=== PATIENT | male | born 1995 | race African-American/Black ===

== ENCOUNTER 2017-03-14 14:34 | Emergency (ER) | payer SELFPAY ==
[~2017-03-14] VITALS: Ht 190.5 cm; Wt 81.8 kg
[~2017-03-14 14:34] MED LIST: DIVA500T52 PO; RISP1 PO
[2017-03-14] MEDS ORDERED: ACETAMINOPHEN 500 MG TABLET PO ONE (17:45)
[2017-03-14 19:52] VITALS: BP 121/83
[2017-03-16] MEDS ORDERED: QUET200T PO (10:43)
== END 2017-03-14 19:53 | disposition home or self-care (01) ==
LOC: EMS 14:36
DX: R07.89 Other chest pain (principal); F29 Unspecified psychosis not due to a substance or known physiological condition; F12.90 Cannabis use, unspecified, uncomplicated; F32.9 Major depressive disorder, single episode, unspecified; J45.909 Unspecified asthma, uncomplicated
CPT/HCPCS: 71100; 99285

== ENCOUNTER 2017-06-06 15:04 | Inpatient (IN) | payer MEDICAID ==
[~2017-06-06] VITALS: Ht 188 cm; Wt 76.2 kg
[~2017-06-06 15:04] MED LIST changes: +QUET200T PO; -RISP1 PO
[2017-06-06] MEDS ORDERED: ZOLPIDEM TARTRATE 10 MG TABLET PO PRN (16:30)
[2017-06-06] MEDS ORDERED: PNEUMOCOCCAL VACCINE POLYVALENT 0.5 ML VIAL [PPSV23] IM ONE (16:45)
[2017-06-06] MEDS ORDERED: INFLUENZA VIRUS VACCINE QVS 2017-18 (3YR+)/PF 60 MCG/0.5 ML SYRINGE IM ONE (16:45)
[2017-06-06] MEDS ORDERED: HALOPERIDOL LACTATE 5 MG/ML VIAL ONE (19:02)
[2017-06-06] MEDS ORDERED: LORazepam 2 MG/ML VIAL ONE (19:02)
[2017-06-06] MEDS ORDERED: DiphenhydrAMINE HCL 50 MG/ML VIAL ONE (19:02)
[2017-06-06] MEDS ORDERED: DiphenhydrAMINE HCL 50 MG/ML VIAL IM ONE (19:15)
[2017-06-06] MEDS ORDERED: HALOPERIDOL LACTATE 5 MG/ML VIAL IM ONE (19:15)
[2017-06-06] MEDS ORDERED: LORazepam 2 MG/ML VIAL IM ONE (19:15)
[2017-06-06] MEDS: QUEtiapine FUMARATE 200 MG TABLET PO SCH (19:15)
[2017-06-07] MEDS: QUEtiapine FUMARATE 200 MG TABLET PO SCH ×2 (08:57→17:00)
[2017-06-07] MEDS: LORazepam 2 MG TABLET PO PRN ×2 (08:57→17:11)
[2017-06-08] MEDS: ALBUTEROL SULFATE HFA 90 MCG/PUFF 8 GM INHALER IH PRN ×4 (00:05→20:35)
[2017-06-08] MEDS: QUEtiapine FUMARATE 200 MG TABLET PO SCH ×2 (08:46→17:00)
[2017-06-09] MEDS: LORazepam 2 MG TABLET PO PRN ×2 (05:38→16:54)
[2017-06-09] MEDS: QUEtiapine FUMARATE 200 MG TABLET PO SCH ×2 (09:00→16:54)
[2017-06-09] MEDS ORDERED: DiphenhydrAMINE HCL 50 MG/ML VIAL ONE (09:49)
[2017-06-09] MEDS ORDERED: LORazepam 2 MG/ML VIAL ONE (09:49)
[2017-06-09] MEDS ORDERED: HALOPERIDOL LACTATE 5 MG/ML VIAL ONE (09:49)
[2017-06-09] MEDS ORDERED: DiphenhydrAMINE HCL 50 MG/ML VIAL IM ONE (10:00)
[2017-06-09] MEDS ORDERED: LORazepam 2 MG/ML VIAL IM ONE (10:00)
[2017-06-09] MEDS ORDERED: HALOPERIDOL LACTATE 5 MG/ML VIAL IM ONE (10:00)
[2017-06-10] MEDS: QUEtiapine FUMARATE 200 MG TABLET PO SCH ×2 (09:00→16:55)
[2017-06-10] MEDS: ALBUTEROL SULFATE HFA 90 MCG/PUFF 8 GM INHALER IH PRN ×2 (13:30→22:56)
[2017-06-11] MEDS: ALBUTEROL SULFATE HFA 90 MCG/PUFF 8 GM INHALER IH PRN ×2 (06:11→10:44)
[2017-06-11] MEDS ORDERED: LORazepam 1 MG TABLET PO PRN (08:30)
[2017-06-11] MEDS: QUEtiapine FUMARATE 200 MG TABLET PO SCH ×2 (09:00→17:00)
[2017-06-12] MEDS: ALBUTEROL SULFATE HFA 90 MCG/PUFF 8 GM INHALER IH PRN ×2 (03:43→08:08)
[2017-06-12] MEDS: QUEtiapine FUMARATE 200 MG TABLET PO SCH ×2 (08:07→08:11)
[2017-06-12] MEDS ORDERED: HALOPERIDOL LACTATE 5 MG/ML VIAL IM ONE (15:30)
[2017-06-12] MEDS ORDERED: LORazepam 2 MG/ML VIAL IM ONE (15:30)
[2017-06-12] MEDS ORDERED: DiphenhydrAMINE HCL 50 MG/ML VIAL IM ONE (15:30)
[2017-06-13] MEDS ORDERED: DiphenhydrAMINE HCL 50 MG/ML VIAL ONE (12:15)
[2017-06-13] MEDS ORDERED: LORazepam 2 MG/ML VIAL ONE (12:15)
[2017-06-13] MEDS ORDERED: HALOPERIDOL LACTATE 5 MG/ML VIAL ONE (12:16)
[2017-06-13] MEDS ORDERED: LORazepam 2 MG/ML VIAL IM ONE (12:30)
[2017-06-13] MEDS ORDERED: HALOPERIDOL LACTATE 5 MG/ML VIAL IM ONE (12:30)
[2017-06-13] MEDS ORDERED: DiphenhydrAMINE HCL 50 MG/ML VIAL IM ONE (12:30)
[2017-06-13] MEDS: ChlorproMAZINE HCL 50 MG TABLET PO SCH (17:00)
[2017-06-13] MEDS: DOCUSATE SODIUM 100 MG CAPSULE PO SCH (17:26)
[2017-06-14] MEDS: ALBUTEROL SULFATE HFA 90 MCG/PUFF 8 GM INHALER IH PRN (07:03)
[2017-06-14] MEDS: DOCUSATE SODIUM 100 MG CAPSULE PO SCH (08:08)
[2017-06-14] MEDS: ChlorproMAZINE HCL 50 MG TABLET PO SCH (08:19)
[2017-06-14] MEDS ORDERED: CHLO50 PO (11:57)
[2017-06-14] MEDS ORDERED: DSS100 PO (11:58)
== END 2017-06-14 12:42 | disposition home or self-care (01) | DRG 750 ==
LOC: B3A 16:29
PROVIDERS: ADMIT Psychiatry & Neurology Child & Adolescent Psychiatry; ATTEND Psychiatry & Neurology Child & Adolescent Psychiatry
DX: F25.1 Schizoaffective disorder, depressive type (principal); R45.851 Suicidal ideations; Z91.14 Patient's other noncompliance with medication regimen; D72.829 Elevated white blood cell count, unspecified; F12.90 Cannabis use, unspecified, uncomplicated; J45.909 Unspecified asthma, uncomplicated; Z53.20 Procedure and treatment not carried out because of patient's decision for unspecified reasons; Z79.899 Other long term (current) drug therapy; Z91.19 Patient's noncompliance with other medical treatment and regimen; Z28.21 Immunization not carried out because of patient refusal
CPT/HCPCS: 87081; J1200; J1630; J2060; J3535

== ENCOUNTER 2017-07-13 00:54 | Emergency (ER) | payer MEDICAID, OTHER ==
[~2017-07-13] VITALS: Ht 185.4 cm; Wt 77.0 kg
[~2017-07-13 00:54] MED LIST changes: +CHLO50 PO; -DIVA500T52 PO; +DSS100 PO; -QUET200T PO
[2017-07-13 04:01] VITALS: BP 125/70
[2017-07-13] MEDS ORDERED: 0.9% SODIUM CHLORIDE 5 ML NEB SOLUTION NEB ONE (04:41)
[2017-07-13] MEDS ORDERED: ALBUTEROL SULFATE 2.5 MG/0.5 ML NEB SOLUTION NEB ONE (04:45)
[2017-07-13] MEDS ORDERED: PredniSONE 20 MG TABLET PO ONE (04:45)
[2017-07-13] MEDS ORDERED: DEXAMETHASONE 4 MG TABLET PO ONE (04:45)
[2017-07-13] MEDS ORDERED: ALBUTEROL SULFATE HFA 90 MCG/PUFF 8 GM INHALER IH ONE ×2 (04:45)
== END 2017-07-13 05:32 | disposition home or self-care (01) ==
LOC: EMS 00:55
DX: J45.901 Unspecified asthma with (acute) exacerbation (principal)
CPT/HCPCS: 94640; 96372; 99283; J7613; J8540; J3535

== ENCOUNTER 2017-07-21 09:48 | Emergency (ER) | payer OTHER | END 2017-07-21 10:18 | disposition left against medical advice (07) | LOC: EMS 09:51 | DX: J45.909 Unspecified asthma, uncomplicated (principal); Z53.21 Procedure and treatment not carried out due to patient leaving prior to being seen by health care provider ==

== ENCOUNTER 2017-08-21 23:32 | Emergency (ER) | payer OTHER ==
[~2017-08-21] VITALS: Ht 188 cm; Wt 75.0 kg
[2017-08-22 00:34] VITALS: BP 0/0
[2017-08-22] MEDS ORDERED: ALBU1.252 IH (10:21)
== END 2017-08-22 00:37 | disposition home or self-care (01) ==
LOC: EMS 23:33
DX: F25.9 Schizoaffective disorder, unspecified (principal); R07.81 Pleurodynia; G89.29 Other chronic pain
CPT/HCPCS: 99284

== ENCOUNTER 2017-08-22 10:16 | Emergency (ER) | payer OTHER ==
[~2017-08-22] VITALS: Ht 182.9 cm; Wt 100.0 kg
[2017-08-22 10:18] VITALS: BP 120/80
[2017-08-22] MEDS ORDERED: ALBU1.252 IH (10:21)
== END 2017-08-22 11:46 | disposition left against medical advice (07) ==
LOC: EMS 10:18
DX: Z76.0 Encounter for issue of repeat prescription (principal); J45.909 Unspecified asthma, uncomplicated; Z53.21 Procedure and treatment not carried out due to patient leaving prior to being seen by health care provider

== ENCOUNTER 2020-06-10 00:49 | Inpatient (IN) | payer MEDICAID, OTHER ==
[~2020-06-10] VITALS: Ht 188 cm; Wt 72.3 kg
[~2020-06-10 00:49] MED LIST changes: +ALBU1.252 IH; -CHLO50 PO; +CHLO50TA41 PO
[2020-06-10] MEDS ORDERED: ALBUTEROL SULFATE 5 MG/ML 20 ML NEB SOLN [BULK] NEB ONE (04:45)
[2020-06-10 08:12] LABS: AMPHET/METH SCREEN,URINE NEGATIVE (NEGATIVE); BARBITURATE SCREEN, URINE NEGATIVE (NEGATIVE); BENZODIAZEPINES SCREEN,URINE NEGATIVE (NEGATIVE); CANNABINOID SCREEN,URINE POSITIVE (NEGATIVE); COCAINE SCREEN,URINE NEGATIVE (NEGATIVE); METHADONE SCREEN, URINE NEGATIVE (NEGATIVE); OPIATE SCREEN,URINE NEGATIVE (NEGATIVE)
[2020-06-10 08:14] LABS: PHENCYCLIDINE SCREEN,URINE NEGATIVE (NEGATIVE)
[2020-06-10] MEDS ORDERED: MAGNESIUM HYDROXIDE SUSPENSION 30 ML UDCUP PO PRN (08:45)
[2020-06-10] MEDS ORDERED: LOPERAMIDE HCL 2 MG CAPSULE PO PRN (08:45)
[2020-06-10] MEDS ORDERED: ZOLPIDEM TARTRATE 10 MG TABLET PO PRN (08:45)
[2020-06-10] MEDS ORDERED: OLANZapine 5 MG RAPDIS TABLET PO PRN (08:45)
[2020-06-10] MEDS ORDERED: TUBERCULIN, PURIFIED PROTEIN DERIVATIVE 5 TU/0.1 ML SYRINGE ID ONE (08:45)
[2020-06-10] MEDS ORDERED: MAG HYDROX/AL HYDROX/SIMETH ES 30 ML SUSPENSION UDCUP PO PRN (08:45)
[2020-06-10] MEDS ORDERED: HydrOXYzine PAMOATE 50 MG CAPSULE PO PRN (08:45)
[2020-06-10] MEDS ORDERED: ACETAMINOPHEN 325 MG TABLET PO PRN (08:45)
[2020-06-10] MEDS ORDERED: PROMETHAZINE HCL 25 MG TABLET PO PRN (08:45)
[2020-06-10] MEDS ORDERED: GuaiFENesin/D-METHORPHAN [SUGAR-FREE] 200-20MG/10 ML SYRUP UDCUP PO PRN (08:45)
[2020-06-10 09:02] LABS: COVID AG,FIA SOURCE NASOPHARYNGEAL
[2020-06-10] MEDS: THIAMINE 100 MG TABLET PO SCH ×2 (09:23→17:00)
[2020-06-10] MEDS: OMEGA-3/DHA/EPA/FISH OIL 1,000 MG CAPSULE PO SCH (09:24)
[2020-06-10] MEDS: NALTREXONE HCL 50 MG TABLET PO SCH (09:24)
[2020-06-10] MEDS: MULTIVITAMINS WITH MINERALS, THERAPEUTIC TABLET PO SCH (09:24)
[2020-06-10] MEDS: LORazepam 2 MG TABLET PO PRN ×2 (09:25→16:19)
[2020-06-10] MEDS: FOLIC ACID 1 MG TABLET PO SCH (09:25)
[2020-06-10 16:28] VITALS: BP 121/78
[2020-06-10 16:31] VITALS: BP 116/78
[2020-06-10] MEDS ORDERED: INFLUENZA VIRUS VACCINE QVS 2020-21 (6MO+)/PF 60 MCG/0.5 ML SYRINGE IM ONE (17:30)
[2020-06-10] MEDS: OLANZapine 5 MG RAPDIS TABLET PO SCH (21:00)
[2020-06-11] MEDS: ALBUTEROL SULFATE HFA 90 MCG/PUFF 8 GM INHALER IH PRN ×4 (00:33→20:01)
[2020-06-11] MEDS: MULTIVITAMINS WITH MINERALS, THERAPEUTIC TABLET PO SCH (09:29)
[2020-06-11] MEDS: FOLIC ACID 1 MG TABLET PO SCH (09:29)
[2020-06-11] MEDS: THIAMINE 100 MG TABLET PO SCH ×2 (09:29→17:07)
[2020-06-11] MEDS: OMEGA-3/DHA/EPA/FISH OIL 1,000 MG CAPSULE PO SCH (09:29)
[2020-06-11] MEDS: NALTREXONE HCL 50 MG TABLET PO SCH (09:29)
[2020-06-11] MEDS: LORazepam 2 MG TABLET PO PRN (15:35)
[2020-06-11 16:08] VITALS: BP 130/68
[2020-06-11] MEDS: OLANZapine 5 MG RAPDIS TABLET PO SCH (20:01)
[2020-06-12] MEDS: ALBUTEROL SULFATE HFA 90 MCG/PUFF 8 GM INHALER IH PRN ×2 (02:54→06:58)
[2020-06-12 08:37] VITALS: BP 133/85
[2020-06-12] MEDS: NALTREXONE HCL 50 MG TABLET PO SCH (10:20)
[2020-06-12] MEDS: THIAMINE 100 MG TABLET PO SCH ×2 (10:21→17:22)
[2020-06-12] MEDS: MULTIVITAMINS WITH MINERALS, THERAPEUTIC TABLET PO SCH (10:21)
[2020-06-12] MEDS: OMEGA-3/DHA/EPA/FISH OIL 1,000 MG CAPSULE PO SCH (10:21)
[2020-06-12] MEDS: FOLIC ACID 1 MG TABLET PO SCH (10:21)
[2020-06-12] MEDS ORDERED: PALIPERIDONE PALMITATE 234 MG/1.5 ML SYRINGE IM ONE ×2 (14:00→16:00)
[2020-06-12] MEDS ORDERED: OLAN10TA22 PO (14:15)
[2020-06-12] MEDS ORDERED: OMEG-135 PO (14:15)
[2020-06-12] MEDS ORDERED: NALT50TA PO (14:15)
[2020-06-12 16:32] VITALS: BP 130/78
[2020-06-12] MEDS ORDERED: OLANZapine 10 MG RAPDIS TABLET PO SCH (21:00)
[2020-06-13 00:43] VITALS: BP 125/72
[2020-06-13] MEDS ORDERED: ALBU8HFA IH (08:19)
[2020-06-13] MEDS: ALBUTEROL SULFATE HFA 90 MCG/PUFF 8 GM INHALER IH PRN (08:47)
[2020-06-13] MEDS: THIAMINE 100 MG TABLET PO SCH (08:50)
[2020-06-13] MEDS: MULTIVITAMINS WITH MINERALS, THERAPEUTIC TABLET PO SCH (08:50)
[2020-06-13] MEDS: FOLIC ACID 1 MG TABLET PO SCH (08:50)
[2020-06-13] MEDS: OMEGA-3/DHA/EPA/FISH OIL 1,000 MG CAPSULE PO SCH (08:50)
[2020-06-13] MEDS: NALTREXONE HCL 50 MG TABLET PO SCH (08:50)
[2020-07-10] MEDS ORDERED: PALIPERIDONE PALMITATE 234 MG/1.5 ML SYRINGE IM SCH (09:00)
== END 2020-06-13 10:29 | disposition home or self-care (01) | DRG 750 ==
LOC: EMS 00:54 → B3A 13:21
PROVIDERS: ADMIT Psychiatry & Neurology Psychiatry; ATTEND Psychiatry & Neurology Psychiatry
DX: F25.9 Schizoaffective disorder, unspecified (principal); R45.851 Suicidal ideations; Z91.19 Patient's noncompliance with other medical treatment and regimen; F41.8 Other specified anxiety disorders; J45.909 Unspecified asthma, uncomplicated; Z87.891 Personal history of nicotine dependence; K21.9 Gastro-esophageal reflux disease without esophagitis; F12.90 Cannabis use, unspecified, uncomplicated; Z59.0 Homelessness; F19.10 Other psychoactive substance abuse, uncomplicated; Z20.828 Contact with and (suspected) exposure to other viral communicable diseases; Z28.21 Immunization not carried out because of patient refusal
CPT/HCPCS: 87426; 90686; J3535

== ENCOUNTER 2020-06-18 22:53 | Inpatient (IN) | payer MEDICAID, OTHER ==
[~2020-06-18] VITALS: Ht 188 cm; Wt 74.6 kg
[~2020-06-18 22:53] MED LIST changes: -ALBU1.252 IH; +ALBU8HFA IH; -CHLO50TA41 PO; -DSS100 PO; +NALT50TA PO; +OLAN10TA22 PO; +OMEG-135 PO
[2020-06-18] MEDS ORDERED: ALBU8HFA IH (23:07)
[2020-06-18] MEDS ORDERED: FLUT44HFA IH (23:07)
[2020-06-18] MEDS ORDERED: QUET100T PO (23:07)
[2020-06-19 00:35] LABS: COVID AG,FIA SOURCE NASOPHARYNGEAL
[2020-06-19] MEDS ORDERED: ZOLPIDEM TARTRATE 10 MG TABLET PO PRN (00:45)
[2020-06-19] MEDS ORDERED: OLANZapine 5 MG RAPDIS TABLET PO PRN (00:45)
[2020-06-19] MEDS ORDERED: OLANZapine 5 MG RAPDIS TABLET PO ONE (01:00)
[2020-06-19 01:30] LABS: APPEARANCE,URINE CLEAR (CLEAR); BILIRUBIN,URINE NEGATIVE (NEGATIVE); GLUCOSE, URINE (UA) NEGATIVE (NEGATIVE); KETONES,URINE NEGATIVE (NEGATIVE); LEUKOCYTE ESTERASE ,URINE NEGATIVE (NEGATIVE); NITRATE,URINE NEGATIVE (NEGATIVE); OCCULT BLOOD,URINE NEGATIVE (NEGATIVE); PROTEIN,URINE NEGATIVE (NEGATIVE); UROBILINOGEN,URINE 0.2 mg/dL (<=1.0)
[2020-06-19 01:36] LABS: AMPHET/METH SCREEN,URINE NEGATIVE (NEGATIVE); BARBITURATE SCREEN, URINE NEGATIVE (NEGATIVE); BENZODIAZEPINES SCREEN,URINE NEGATIVE (NEGATIVE); CANNABINOID SCREEN,URINE NEGATIVE (NEGATIVE); COCAINE SCREEN,URINE NEGATIVE (NEGATIVE); METHADONE SCREEN, URINE NEGATIVE (NEGATIVE); OPIATE SCREEN,URINE NEGATIVE (NEGATIVE)
[2020-06-19 01:37] LABS: PHENCYCLIDINE SCREEN,URINE NEGATIVE (NEGATIVE)
[2020-06-19] MEDS: LORazepam 2 MG TABLET PO PRN (02:59)
[2020-06-19] MEDS ORDERED: ALBUTEROL SULFATE HFA 90 MCG/PUFF 8 GM INHALER IH PRN ×2 (07:15→11:00)
[2020-06-19 09:15] VITALS: BP 108/73
[2020-06-19] MEDS ORDERED: ACETAMINOPHEN 325 MG TABLET PO PRN (11:45)
[2020-06-19] MEDS ORDERED: PALIPERIDONE PALMITATE 234 MG/1.5 ML SYRINGE IM ONE (11:45)
[2020-06-19] MEDS ORDERED: MAGNESIUM HYDROXIDE SUSPENSION 30 ML UDCUP PO PRN (11:45)
[2020-06-19] MEDS ORDERED: HydrOXYzine PAMOATE 50 MG CAPSULE PO PRN (11:45)
[2020-06-19] MEDS ORDERED: LOPERAMIDE HCL 2 MG CAPSULE PO PRN (11:45)
[2020-06-19] MEDS ORDERED: GuaiFENesin/D-METHORPHAN [SUGAR-FREE] 200-20MG/10 ML SYRUP UDCUP PO PRN (11:45)
[2020-06-19] MEDS ORDERED: PROMETHAZINE HCL 25 MG TABLET PO PRN (11:45)
[2020-06-19] MEDS ORDERED: MAG HYDROX/AL HYDROX/SIMETH ES 30 ML SUSPENSION UDCUP PO PRN (11:45)
[2020-06-19] MEDS: THIAMINE 100 MG TABLET PO SCH (16:09)
[2020-06-19 16:15] VITALS: BP 116/80
[2020-06-19] MEDS ORDERED: DiphenhydrAMINE HCL 50 MG/ML VIAL ONE (17:11)
[2020-06-19] MEDS ORDERED: HALOPERIDOL LACTATE 5 MG/ML VIAL ONE (17:11)
[2020-06-19] MEDS ORDERED: LORazepam 2 MG/ML VIAL ONE (17:11)
[2020-06-19] MEDS ORDERED: HALOPERIDOL LACTATE 5 MG/ML VIAL IM ONE (17:15)
[2020-06-19] MEDS ORDERED: LORazepam 2 MG/ML VIAL IM ONE (17:15)
[2020-06-19] MEDS ORDERED: DiphenhydrAMINE HCL 50 MG/ML VIAL IM ONE (17:15)
[2020-06-19] MEDS: OLANZapine 5 MG RAPDIS TABLET PO SCH (20:49)
[2020-06-20] MEDS: NALTREXONE HCL 50 MG TABLET PO SCH (08:35)
[2020-06-20] MEDS: OMEGA-3/DHA/EPA/FISH OIL 1,000 MG CAPSULE PO SCH (08:36)
[2020-06-20] MEDS: THIAMINE 100 MG TABLET PO SCH ×2 (08:36→16:03)
[2020-06-20] MEDS: FOLIC ACID 1 MG TABLET PO SCH (08:36)
[2020-06-20] MEDS: MULTIVITAMINS WITH MINERALS, THERAPEUTIC TABLET PO SCH (08:36)
[2020-06-20] MEDS: LORazepam 2 MG TABLET PO PRN (16:03)
[2020-06-20 16:24] VITALS: BP 124/84
[2020-06-20] MEDS: OLANZapine 5 MG RAPDIS TABLET PO SCH (20:46)
[2020-06-21 08:00] VITALS: BP 123/81
[2020-06-21] MEDS: MULTIVITAMINS WITH MINERALS, THERAPEUTIC TABLET PO SCH (10:09)
[2020-06-21] MEDS: NALTREXONE HCL 50 MG TABLET PO SCH (10:09)
[2020-06-21] MEDS: OMEGA-3/DHA/EPA/FISH OIL 1,000 MG CAPSULE PO SCH (10:09)
[2020-06-21] MEDS: FOLIC ACID 1 MG TABLET PO SCH (10:09)
[2020-06-21] MEDS: THIAMINE 100 MG TABLET PO SCH ×2 (10:09→16:34)
[2020-06-21 16:42] VITALS: BP 104/60
[2020-06-21] MEDS ORDERED: OMEG-135 PO (18:57)
[2020-06-21] MEDS ORDERED: OLAN5TAB30 PO (18:57)
[2020-06-21] MEDS ORDERED: NALT50TA PO (18:57)
[2020-06-21] MEDS ORDERED: PALIPERIDONE PALMITATE 234 MG/1.5 ML SYRINGE IM ONE (19:00)
[2020-06-21] MEDS: OLANZapine 5 MG RAPDIS TABLET PO SCH (20:19)
[2020-06-22 08:00] VITALS: BP 115/82
[2020-06-22] MEDS: MULTIVITAMINS WITH MINERALS, THERAPEUTIC TABLET PO SCH (08:26)
[2020-06-22] MEDS: OMEGA-3/DHA/EPA/FISH OIL 1,000 MG CAPSULE PO SCH (08:26)
[2020-06-22] MEDS: NALTREXONE HCL 50 MG TABLET PO SCH (08:26)
[2020-06-22] MEDS: THIAMINE 100 MG TABLET PO SCH (08:26)
[2020-06-22] MEDS: LORazepam 2 MG TABLET PO PRN (08:27)
[2020-06-22] MEDS: FOLIC ACID 1 MG TABLET PO SCH (08:27)
[2020-06-23] MEDS ORDERED: PALIPERIDONE PALMITATE 156 MG/ML SYRINGE IM ONE (09:00)
[2020-07-19] MEDS ORDERED: PALIPERIDONE PALMITATE 234 MG/1.5 ML SYRINGE IM SCH (09:00)
== END 2020-06-22 13:44 | disposition home or self-care (01) | DRG 750 ==
LOC: EMS 22:53 → 3EI 06-19 00:35 → 3EC 06-19 17:25
PROVIDERS: ADMIT Psychiatry & Neurology Psychiatry; ATTEND Psychiatry & Neurology Psychiatry
DX: F20.9 Schizophrenia, unspecified (principal); F41.0 Panic disorder [episodic paroxysmal anxiety]; J45.909 Unspecified asthma, uncomplicated; R45.851 Suicidal ideations; Z20.828 Contact with and (suspected) exposure to other viral communicable diseases; Z53.20 Procedure and treatment not carried out because of patient's decision for unspecified reasons; F41.8 Other specified anxiety disorders; J44.9 Chronic obstructive pulmonary disease, unspecified; F17.210 Nicotine dependence, cigarettes, uncomplicated; Z55.9 Problems related to education and literacy, unspecified; Z59.9 Problem related to housing and economic circumstances, unspecified; Z65.3 Problems related to other legal circumstances; Z91.14 Patient's other noncompliance with medication regimen; Z91.19 Patient's noncompliance with other medical treatment and regimen; Z79.899 Other long term (current) drug therapy; Z79.51 Long term (current) use of inhaled steroids; Z59.0 Homelessness
CPT/HCPCS: 87426; J1200; J1630; J2060; J3535

== ENCOUNTER 2020-06-28 09:02 | Inpatient (IN) | payer MEDICAID ==
[~2020-06-28] VITALS: Ht 188 cm; Wt 80.1 kg
[~2020-06-28 09:02] MED LIST changes: -ALBU8HFA IH; -OLAN10TA22 PO; +OLAN5TAB30 PO
[2020-06-28] MEDS ORDERED: HydrOXYzine PAMOATE 50 MG CAPSULE PO PRN (11:00)
[2020-06-28] MEDS ORDERED: PROMETHAZINE HCL 25 MG TABLET PO PRN (11:00)
[2020-06-28] MEDS ORDERED: GuaiFENesin/D-METHORPHAN [SUGAR-FREE] 200-20MG/10 ML SYRUP UDCUP PO PRN (11:00)
[2020-06-28] MEDS ORDERED: ZOLPIDEM TARTRATE 10 MG TABLET PO PRN (11:00)
[2020-06-28] MEDS ORDERED: PNEUMOCOCCAL VACCINE POLYVALENT 0.5 ML VIAL [PPSV23] IM ONE (13:30)
[2020-06-28] MEDS ORDERED: ALBUTEROL SULFATE HFA 90 MCG/PUFF 8 GM INHALER IH PRN (14:30)
[2020-06-28] MEDS: LORazepam 2 MG TABLET PO PRN (16:01)
[2020-06-28] MEDS: THIAMINE 100 MG TABLET PO SCH (16:01)
[2020-06-28] MEDS: BECLOMETHASONE DIPR HFA 80 MCG/PUFF 10.6 GM INHALER IH SCH (20:39)
[2020-06-28] MEDS: OLANZapine 5 MG RAPDIS TABLET PO SCH (20:40)
[2020-06-29] MEDS: NALTREXONE HCL 50 MG TABLET PO SCH (08:34)
[2020-06-29] MEDS: FOLIC ACID 1 MG TABLET PO SCH (08:34)
[2020-06-29] MEDS: MULTIVITAMINS WITH MINERALS, THERAPEUTIC TABLET PO SCH (08:34)
[2020-06-29] MEDS: OMEGA-3/DHA/EPA/FISH OIL 1,000 MG CAPSULE PO SCH (08:34)
[2020-06-29] MEDS: THIAMINE 100 MG TABLET PO SCH ×2 (08:34→17:07)
[2020-06-29] MEDS: BECLOMETHASONE DIPR HFA 80 MCG/PUFF 10.6 GM INHALER IH SCH ×2 (09:24→20:29)
[2020-06-29] MEDS: LORazepam 2 MG TABLET PO PRN ×2 (09:43→17:07)
[2020-06-29 16:11] VITALS: BP 115/72
[2020-06-29] MEDS: OLANZapine 5 MG RAPDIS TABLET PO SCH (20:41)
[2020-06-30 01:05] VITALS: BP 124/75
[2020-06-30 08:18] LABS: AMPHET/METH SCREEN,URINE NEGATIVE (NEGATIVE); BARBITURATE SCREEN, URINE NEGATIVE (NEGATIVE); BENZODIAZEPINES SCREEN,URINE NEGATIVE (NEGATIVE); CANNABINOID SCREEN,URINE NEGATIVE (NEGATIVE); COCAINE SCREEN,URINE NEGATIVE (NEGATIVE); METHADONE SCREEN, URINE NEGATIVE (NEGATIVE); OPIATE SCREEN,URINE NEGATIVE (NEGATIVE); PHENCYCLIDINE SCREEN,URINE NEGATIVE (NEGATIVE)
[2020-06-30 08:21] LABS: APPEARANCE,URINE CLEAR (CLEAR); BILIRUBIN,URINE NEGATIVE (NEGATIVE); GLUCOSE, URINE (UA) NEGATIVE (NEGATIVE); KETONES,URINE NEGATIVE (NEGATIVE); LEUKOCYTE ESTERASE ,URINE NEGATIVE (NEGATIVE); NITRATE,URINE NEGATIVE (NEGATIVE); OCCULT BLOOD,URINE NEGATIVE (NEGATIVE); PH,URINE 7.5 (5.0-8.0); PROTEIN,URINE NEGATIVE (NEGATIVE); UROBILINOGEN,URINE 0.2 mg/dL (<=1.0)
[2020-06-30] MEDS: FOLIC ACID 1 MG TABLET PO SCH (08:30)
[2020-06-30] MEDS: NALTREXONE HCL 50 MG TABLET PO SCH (08:30)
[2020-06-30] MEDS: MULTIVITAMINS WITH MINERALS, THERAPEUTIC TABLET PO SCH (08:30)
[2020-06-30] MEDS: THIAMINE 100 MG TABLET PO SCH (08:30)
[2020-06-30] MEDS: OMEGA-3/DHA/EPA/FISH OIL 1,000 MG CAPSULE PO SCH (08:30)
[2020-06-30] MEDS: BECLOMETHASONE DIPR HFA 80 MCG/PUFF 10.6 GM INHALER IH SCH ×2 (08:31→20:48)
[2020-06-30] MEDS: LORazepam 2 MG TABLET PO PRN ×2 (09:58→15:07)
[2020-06-30] MEDS ORDERED: ACETAMINOPHEN 325 MG TABLET PO PRN (19:30)
[2020-06-30 20:00] VITALS: BP 122/78
[2020-06-30] MEDS ORDERED: QUEtiapine FUMARATE 200 MG TABLET PO SCH (21:00)
[2020-07-01 00:31] VITALS: BP 107/67
[2020-07-01] MEDS ORDERED: NALT50TA PO (07:54)
[2020-07-01] MEDS ORDERED: QUET200T29 PO (07:54)
[2020-07-01] MEDS ORDERED: OMEG-135 PO (07:54)
[2020-07-01] MEDS: BECLOMETHASONE DIPR HFA 80 MCG/PUFF 10.6 GM INHALER IH SCH (08:39)
[2020-07-01] MEDS: OMEGA-3/DHA/EPA/FISH OIL 1,000 MG CAPSULE PO SCH (08:40)
[2020-07-01] MEDS: NALTREXONE HCL 50 MG TABLET PO SCH (08:41)
[2020-07-01] MEDS ORDERED: QUEtiapine FUMARATE 100 MG TABLET PO SCH (09:00)
[2020-07-01] MEDS ORDERED: FOLIC ACID 1 MG TABLET PO SCH (09:00)
[2020-07-01] MEDS ORDERED: THIAMINE 100 MG TABLET PO SCH (09:00)
[2020-07-01] MEDS ORDERED: MULTIVITAMINS WITH MINERALS, THERAPEUTIC TABLET PO SCH (09:00)
[2020-07-01] MEDS ORDERED: BECL10.6 IH (09:01)
== END 2020-07-01 10:00 | disposition home or self-care (01) | DRG 750 ==
LOC: B3A 11:52
PROVIDERS: ADMIT Psychiatry & Neurology Psychiatry; ATTEND Psychiatry & Neurology Psychiatry
DX: F25.0 Schizoaffective disorder, bipolar type (principal); Z59.0 Homelessness; Z91.14 Patient's other noncompliance with medication regimen; F17.210 Nicotine dependence, cigarettes, uncomplicated; Z88.8 Allergy status to other drugs, medicaments and biological substances; J45.909 Unspecified asthma, uncomplicated; F32.9 Major depressive disorder, single episode, unspecified; Z28.21 Immunization not carried out because of patient refusal
CPT/HCPCS: 80307; J3535

== ENCOUNTER 2020-07-09 18:18 | Emergency (ER) | payer MEDICAID, OTHER ==
[~2020-07-09] VITALS: Ht 185.4 cm; Wt 72.7 kg
[~2020-07-09 18:18] MED LIST changes: +BECL10.6 IH; -OLAN5TAB30 PO; -OMEG-135 PO; +QUET200T29 PO
[2020-07-09] MEDS ORDERED: TRAZ-252 PO (20:20)
[2020-07-09] MEDS ORDERED: LORA-999 PO (20:20)
[2020-07-09] MEDS ORDERED: LORazepam 2 MG TABLET PO PRN (23:00)
[2020-07-09] MEDS ORDERED: OLANZapine 5 MG RAPDIS TABLET PO PRN (23:00)
[2020-07-09] MEDS ORDERED: ZOLPIDEM TARTRATE 10 MG TABLET PO PRN (23:00)
[2020-07-09 23:13] LABS: AMPHET/METH SCREEN,URINE NEGATIVE (NEGATIVE); BARBITURATE SCREEN, URINE NEGATIVE (NEGATIVE); BENZODIAZEPINES SCREEN,URINE NEGATIVE (NEGATIVE); CANNABINOID SCREEN,URINE POSITIVE (NEGATIVE); COCAINE SCREEN,URINE NEGATIVE (NEGATIVE); METHADONE SCREEN, URINE NEGATIVE (NEGATIVE); OPIATE SCREEN,URINE POSITIVE (NEGATIVE); PHENCYCLIDINE SCREEN,URINE NEGATIVE (NEGATIVE)
[2020-07-09 23:51] LABS: COVID AG,FIA SOURCE NASOPHARYNGEAL
[2020-07-09 23:52] VITALS: BP 102/60
== END 2020-07-10 02:00 | disposition home or self-care (01) ==
LOC: EMS 18:28 → 3EI 22:58 → UNDOADMIN 22:58 → EMS 07-10 02:00
DX: F32.9 Major depressive disorder, single episode, unspecified (principal); R45.851 Suicidal ideations; F41.9 Anxiety disorder, unspecified; F20.9 Schizophrenia, unspecified; J45.909 Unspecified asthma, uncomplicated; Z20.828 Contact with and (suspected) exposure to other viral communicable diseases; Z91.018 Allergy to other foods; Z88.5 Allergy status to narcotic agent
CPT/HCPCS: 87426

== ENCOUNTER 2020-07-20 18:17 | Emergency (ER) | payer MEDICAID, OTHER ==
[~2020-07-20] VITALS: Ht 185.4 cm; Wt 72.0 kg
[~2020-07-20 18:17] MED LIST changes: +LORA-999 PO; +TRAZ-252 PO
[2020-07-20 22:00] VITALS: BP 129/87
[2020-07-20] MEDS ORDERED: OLANZapine 5 MG TABLET PO ONE (23:00)
[2020-07-20] MEDS ORDERED: ALBUTEROL SULFATE HFA 90 MCG/PUFF 8 GM INHALER IH ONE (23:00)
[2020-07-20] MEDS ORDERED: QUEtiapine FUMARATE 100 MG TABLET PO ONE (23:00)
[2020-07-20] MEDS ORDERED: CAMPHOR/MENTHOL/PHENOL 10 GM OINTMENT TP ONE (23:00)
== END 2020-07-20 23:26 | disposition home or self-care (01) ==
LOC: EMS 18:17
DX: F20.0 Paranoid schizophrenia (principal); J45.909 Unspecified asthma, uncomplicated; F41.9 Anxiety disorder, unspecified; F32.9 Major depressive disorder, single episode, unspecified; Z88.5 Allergy status to narcotic agent; Z91.018 Allergy to other foods
CPT/HCPCS: 94640; J3535; Z7502; Z7610

== ENCOUNTER 2020-08-03 02:11 | Emergency (ER) | payer OTHER | END 2020-08-03 05:34 | disposition left against medical advice (07) | LOC: EMS 02:15 | DX: Z00.00 Encounter for general adult medical examination without abnormal findings (principal); Z53.21 Procedure and treatment not carried out due to patient leaving prior to being seen by health care provider ==

== ENCOUNTER 2023-02-03 20:48 | Emergency (ER) | payer OTHER ==
[~2023-02-03] VITALS: Ht 177.8 cm; Wt 75.0 kg
[~2023-02-03 20:48] MED LIST changes: -QUET200T29 PO; +QUET200T30 PO
[2023-02-03 21:03] VITALS: TEMP 98.2
[2023-02-03 22:36] VITALS: BP 125/78; PULSE 84; RESP 22
== END 2023-02-03 23:01 | disposition home or self-care (01) ==
LOC: EMS 20:49
DX: S60.312A Abrasion of left thumb, initial encounter (principal); F41.9 Anxiety disorder, unspecified; J45.909 Unspecified asthma, uncomplicated; F32.A Depression, unspecified; F20.9 Schizophrenia, unspecified; Z91.018 Allergy to other foods; Z88.8 Allergy status to other drugs, medicaments and biological substances; Y08.89XA Assault by other specified means, initial encounter; Y93.89 Activity, other specified; Y92.89 Other specified places as the place of occurrence of the external cause; Y99.8 Other external cause status
CPT/HCPCS: 93005; 99283